=== PATIENT | female | born 1980 | race African-American/Black ===

== ENCOUNTER 2016-11-12 17:42 | Emergency (ER) | payer MEDICAID ==
[~2016-11-12] VITALS: Ht 165.1 cm; Wt 100.0 kg
[~2016-11-12 17:42] MED LIST: CEPH500C3 PO; MACR100C PO; PRENCAP10 PO
[2016-11-12 17:44] VITALS: BP 139/80; PULSE 82; RESP 12; TEMP 98; O2SAT 99
[2016-11-12] MEDS ORDERED: DICL75TA PO (19:30)
--- NOTE | 2016-11-12 19:30 | PD ---
HPI Chief Complaint: Injury Time Seen by Provider: 19:26 Travel History International Travel<30 days: No Contact w/Intl Traveler<30days: No Traveled to known affect area: No History of Present Illness HPI 36-year-old black female presents to emergency Department with complaints of bilateral foot pain. She states that she has had pain from the heel across the arch of her foot into her forefoot for several months now. She denies any direct trauma. She states the pain is worse when she ambulates. She has some relief with staying up off her feet and having socks on them. She denies any numbness, tingling. No direct trauma. She states that she's had a prior fracture of her right foot requiring pins. She has not seen her primary care doctor regarding this pain. She works as a [employer] on her feet all day. She wears crocs as her shoe choice. PFSH Past Medical History Narrative Medical Gestational diabetes Blood Disorders: No Cancer: No Cardiovascular Problems: No Chemotherapy: No Diabetes: Yes Diminished Hearing: No Endocrine: Yes Genitourinary: No Hypertension: Yes (GESTATIONAL HTN) Immune Disorder: No Implanted Vascular Access Dvce: No Neurologic: No Psychiatric: No Reproductive: No Respiratory: No Immunizations Current: Yes Radiation Therapy: No Tetanus Vaccination: < 5 Years Menopausal: No : 6 Para: 5 Miscarriage: 0 : 0 Ectopic : No Past Surgical History Gynecologic Surgery: Yes (CERVICAL BIOPSY) Hysterectomy: No Other Surgery: Yes (RIGHT FOOT 2002) Social History Alcohol Use: No Tobacco Use: No Substance Use: No Allergies-Medications (Allergen,Severity, Reaction): Coded Allergies: Vicodin (Verified Allergy, Severe, RASH, 11/12/16) Reported Meds & Prescriptions Reported Meds & Active Scripts Active Macrobid (Nitrofurantoin Macrocrystals) 100 Mg Cap 100 Mg PO BID Keflex (Cephalexin Monohydrate) 500 Mg Cap 500 Mg PO Q8 Reported Multi +Dha (Ferrous Fumarate/Vit C/Folic Acid) + Cap 1 Cap PO DAILY Review of Systems Except as stated in HPI: all other systems reviewed are Neg Physical Exam Narrative GENERAL: This is a well-nourished, well-developed patient, in no apparent distress. SKIN: No rashes, ecchymoses or lesions. Warm and dry. HEAD: Atraumatic. Normocephalic. EYES: PERRL, EOMI, no discharge or injection. No scleral icterus. EARS: Clear NOSE: Nasal turbinates appear normal. THROAT: Mucosa pink and moist. Airway patent. NECK: Trachea midline. supple, moves head freely. LUNGS: Clear to auscultation. CV: Regular in rhythm. ABDOMEN: Soft nontender. EXT: No clubbing cyanosis or edema. Examination of both feet reveal no obvious swelling. She has low arches. There is no point tenderness to palpation. She has intact gross sensation with good distal pulses. She ambulates with a normal gait. Data Data Last Documented VS Vital Signs Date Time Temp Pulse Resp B/P Pulse Ox O2 Delivery O2 Flow Rate FiO2 11/12/16 17:44 98.0 82 12 139/80 99 Room Air [facility] Medical Decision Making Medical Screen Exam Complete: Yes Emergency Medical Condition: Yes Medical Record Reviewed: Yes Differential Diagnosis Differential diagnoses: Plantar fasciitis, tendinitis, sprain, strain Narrative Course The patient complains of pain across the soles of her feet from heel to the distal toes. I suspect this is more due to lack of our support in her shoes. She is advised to use insoles and more supportive shoes. She'll be given NSAIDs for pain. She is advised to follow-up with her engraver block. This is bilateral foot tendinitis Diagnosis Primary Impression: BILATERAL FOOT TENDINITIS Patient Instructions: General Instructions Additional Instructions: Rest. Ice your feet for any acute swelling and pain. Get good arch support insoles for your shoes. Comfortable good fitting lace up shoes. Follow-up with a engraver block in 1-2 weeks Follow-up with your primary care doctor in 1-2 weeks. Med/Other Pt SpecificInfo: Prescription(s) given Disposition: 01 DISCHARGE HOME Condition: Stable Jero Blair Nov 12, 2016 19:30
== END 2016-11-12 19:54 | disposition home or self-care (01) ==
LOC: NEPB 17:42
DX: M77.52 Other enthesopathy of left foot and ankle (principal); M77.51 Other enthesopathy of right foot and ankle
CPT/HCPCS: 99283